=== PATIENT | male | born 1990 | race Hispanic/Latino ===

== ENCOUNTER 2022-05-21 18:12 | Emergency (ER) | payer SELFPAY ==
--- OUTSIDE RECORDS SUMMARY | 2022-05-21 18:17 | XMS REPORT | Continuity of Care Document ---
:1990 Author Organization [facility] t Address [address] [place] [address] Care Team Providers Name Role Phone Pcp, Patient Does Not Have A Primary Care Physician [phone] Flower Stevenson NP Attending Clinician JONNY ASHTON III Attending Clinician Unavailable Problems Condition Condition Condition Status Onset Resolution Last Treating Co mments Source Name Details Category Date Date Treatment Clinician Date MULTIPLE MULTIPLE Diagnosis Active 2017-07-26 Memoria FACILA FACILA 03-10 09:30:00 l FX'S FX'S 00:00: Sumit Active 00 03/10/2017 [facility] No known No known Disease Unive rs active active ity of problems problems [facility] History of Past Illness Condition Condition Condition Status Onset Resolution Last Treating Co mments Source Name Details Category Date Date Treatment Clinician Date Unspecifie Unspecifi Problem 2017-03-13 2017-03-13 Memoria d fracture ed 03-10 00:29:00 00:29:00 l of facial fracture 05:00: Lona nn bones, of facial 00 initial bones, encounter initial for closed encounter fracture for closed fracture 03/10/2017 03/13/2017 [facility] Allergies, Adverse Reactions, Alerts Allergy Allergy Status Severity Reaction(s) Onset Inactive Treating Comm ents Source Name Type Date Date Clinician Crab Propensi Active Swelling 2015-10 Facial Univer s ty to 0-07 swelling ity of adverse 00:00: [place] reaction Medical s Branch CRAB DRUG Active Swelling 2015-10 Univers INGREDI 0-07 ity of 00:00: [place] [id number] Medical Branch Social History Social Habit Start Date Stop Date Quantity Comments Source Exposure to Yes [facility] SARS-CoV-2 (event) Medica l Branch Sex Assigned At [birth year] [facility] 00:00:00 00:00:00 Medical Branch Smoking Status Start Date Stop Date Source Unknown if ever smoked [facility] Social History 2017-03-10 07:56:16 [facility] sullivan Medications Ordered Filled Start Stop Current Ordering Indication Dosage Frequency Signature Comments Components Source Medication Medication Date Date Medication? Clinician (SIG) Name Name albuterol Yes [id number] 2{puff} Inhale 2 Univers 90 -06 Puffs ity of mcg/actuati 00:00: every 4 [place] as on inhaler 00 (four) Medical hours as Branch needed for Wheezing or Shortness of Breath. benzonatate Yes [id number] 200mg Take 2 Univers 100 mg 9-06 capsules ity of capsule 00:00: [place] mouth 3 [place] 00 (three) Medical times Branch daily as needed for Cough. aspirin 325 2020- No [id number] 325mg Take 1 Univers mg tablet 06-19 tablet by ity of 00:00: 04:59 mouth [place] 00 :00 daily for Medical 30 days. Branch famotidine 2020- No [id number] 20mg Take 1 Univers 20 mg 06-19 tablet by ity of tablet 00:00: 04:59 mouth at [place] 00 :00 bedtime Medical for 21 Branch days. codeine-gua 2020- No 5224 10mL Take 10 mL Univers ifenesin 06-19 by mouth ity of (CHERATUSSI 00:00: 04:59 every 6 [place] 00 :00 (six) Medical 10-100 mg/5 hours as Bran ch mL solution needed for Cough for up to 7 days. Indication s: chronic pain traMADOL 2015-10 Yes 50mg Take 1 Univers (ULTRAM) 50 0-07 tablet by ity of mg tablet 00:00: mouth [place] 00 every 6 Medical (six) Branch hours as needed for Pain (scale 4-6). Jonny Ashton PA-C / Alan Petty MD ESTEVAN# [id number] DPS# [id number] x Lic.# [id number] [facility]# [id number] cyclobenzap 2015-10 No 5mg Take 1 Uni vers rine 007 06-19 tablet by ity of (FLEXERIL) 00:00: 00:00 mouth 3 [place] as 5 mg tablet 00 :00 (three) Medic al times Branch daily. Vital Signs Vital Name Observation Time Observation Value Comments Source Systolic blood 2021-06-19 17:09:00 136 mm[Hg] Univer sity of pressure [facility] Diastolic blood 2021-06-19 17:09:00 57 mm[Hg] Unive rsity of [facility] Heart rate 2021-06-19 17:09:00 73 /min [facility] Body temperature 2021-06-19 17:09:00 37.17 Gloria [facility] Respiratory rate 2021-06-19 17:09:00 22 /min [facility] Body weight 2021-06-19 17:09:00 58.968 kg [facility] BMI 2021-06-19 17:09:00 20.98 kg/m2 [facility] Oxygen saturation in 2021-06-19 17:09:00 100 /min [facility] Arterial blood by [facility] Pulse oximetry [place] Systolic (mm Hg) 2017-03-10 11:33:00 Maurizio rial [place] Diastolic (mm Hg) 2017-03-10 11:33:00 [facility] orial Sumit Respitory Rate 2017-03-10 11:33:00 Memori al [place] Heart Rate 2017-03-10 11:33:00 Memorial [facility] Respitory Rate 2017-03-10 10:21:00 Memori al [place] Systolic (mm Hg) 2017-03-10 10:21:00 Maurizio rial [place] Diastolic (mm Hg) 2017-03-10 10:21:00 Mem orial [place] Heart Rate 2017-03-10 10:21:00 [facility] Heart Rate 2017-03-10 07:26:00 [facility] [place] Systolic (mm Hg) 2017-03-10 07:26:00 Maurizio rial Sumit Diastolic (mm Hg) 2017-03-10 07:26:00 Mem orial Sumit Respitory Rate 2017-03-10 07:26:00 Tylerbryan Smith BMI Calculated 2017-03-10 07:26:00 Wagner Smith Weight 2017-03-10 07:26:00 Shon Loveann Height 2017-03-10 07:26:00 170.18 cm [facility] Procedures Procedure Date / Time Performed Performing Clinician Sravani hennessy COVID-19 (ID NOW 2021-06-19 17:12:00 Francois Alejo [facility] RAPID TESTING) [facility] Encounters Start End Encounter Admission Attending Care Care Encounter Source Date/Time Date/Time Type Type Clinicians Facility Department ID 2021-06-19 2021-06-19 Emergency Dre[place], [facility] [id number] Univers 12:14:00 15:39:00 Flower Choi [id number] [facility] [id number] [facility] [id number] [facility] 084 Branch 2021-06-19 2021-06-19 Emergency X [facility] ERT [id number] Univers 11:39:00 11:39:00 [facility] 2017-03-10 2017-03-10 [facility] [id number] Memoria 07:26:00 11:34:00 gabe Arana 48 l [facility] 2016-07-20 2016-07-20 Emergency X POLI III, [facility] ERT [id number] Univers 13:29:55 15:14:00 JONNY [facility] Results Test Description Test Time Test Comments Results Result Comments Source COVID-19 (ID NOW RAPID TESTING) 2021-06-19 17:37:24 Test Item Value Reference Range Interpretation Comme nts SARS-CoV-2 Rapid ID NOW (test code Positive Not Detected A = 88782-8) VINICIO (test code = VINICIO) ID NOW COVID-19 Assay is an isothermal nucleic acid amplification test intended for the qualitative detection of nucleic acid from SARS-CoV-2 viral RNA in nasopharyngeal (REEL CART OPERATOR) specimens. It is used under Emergency Use Authorization (EUA) by FDA. The limit of detection (LOD) of the assay is 125 Genome Equivalents/mL. A positive result is indicative of the presence of SARS-CoV-2 RNA. ?Clinical correlation with patient history and other diagnostic information is necessary to determine patient infection status. A negative (Not Detected) result does not preclude SARS-CoV-2 infection. In patients with clinical symptoms and other tests that are consistent with SARS-CoV-2 infection, negative results should be treated as presumptive negative and a new specimen should be tested with alternative PCR molecular test. Invalid: Please collect a new specimen for repeat patient testing if clinically indicated. Lab Interpretation (test code = Abnormal 17716-0) [facility]
[2022-05-21] MEDS ORDERED: NA CHLORIDE 0.9% 1,000 ML ONE (19:15)
[2022-05-21] MEDS ORDERED: ACETAMINOPHEN 500 MG TAB ONE (19:21)
[2022-05-21 19:39] LABS: Absolute Lymphocytes (CBC) 1.4 K/uL (0.7-4.9); Lymphocytes % 11.3 % (15.3-44.8); MCV 85.9 fL (80-100); MPV 8.6 fL (7.6-11.3); RBC Red Blood Cell Count 5.12 M/uL (4.33-5.43)
[2022-05-21 19:42] LABS: Protime INR 1.26
[2022-05-21 19:53] LABS: Albumin 4.4 g/dL (3.4-5.0); Bilirubin Direct 0.1 mg/dL (0-0.2); Bilirubin Total 0.7 mg/dL (0.2-1.0); Potassium 3.9 mmol/L (3.5-5.1); Protein, Total 8.2 g/dL (6.4-8.2)
--- NOTE | 2022-05-21 20:16 | EDPHYS ---
Physician Documentation [facility] Name: Dirk Pimentel Age: 31 yrs Sex: Male : 1990 Arrival Date: 05/21/2022 Time: 18:21 Bed 24 Private MD: ED Physician Fam Casper HPI: 05/21 18:25 This 31 yrs old Male presents to ER via EMS with complaints of Heat Exposure. cp 18:25 Type of Exposure: heat, while working outside. cp 18:25 Context: The problem was sustained at work. cp 18:25 Onset: The symptoms/episode began/occurred today. Symptoms: nausea, vomiting, cramping cp all over. The patient has not experienced similar symptoms in the past. Historical: - Allergies: 18:28 NKDA; jl7 18:28 SEAFOOD; jl7 - Home Meds: 18:28 None [Active]; jl7 - PMHx: 18:28 Asthma; jl7 - PSHx: 18:28 None; jl7 - Immunization history:: Client reports having NOT received the Covid vaccine. - Social history:: Smoking status: Patient denies any tobacco usage or history of. ROS: 18:30 Constitutional: Negative for chills, fever, poor PO intake. cp 18:30 Abdomen/GI: Positive for vomiting, abdominal cramps, Negative for diarrhea, cp constipation. Exam: 18:35 Constitutional: The patient appears in no acute distress, alert, awake, cp non-diaphoretic, non-toxic, well developed, well nourished. 18:35 Head/Face: Normocephalic, atraumatic. cp 18:35 Eyes: Periorbital structures: appear normal, Conjunctiva: normal, no exudate, no injection, Sclera: no appreciated abnormality, Lids and lashes: appear normal, bilaterally. 18:35 ENT: External ear(s): are unremarkable, Nose: is normal, Mouth: Lips: moist, Oral mucosa: moist, Posterior pharynx: Airway: no evidence of obstruction, patent. 18:35 Neck: ROM/movement: is normal, is supple, without pain, no range of motions limitations, no nuchal rigidity. 18:35 Chest/axilla: Inspection: normal. 18:35 Cardiovascular: Rate: normal, Rhythm: regular, Edema: is not appreciated, JVD: is not appreciated. 18:35 Respiratory: the patient does not display signs of respiratory distress, Respirations: normal, no use of accessory muscles, no retractions, labored breathing, is not present, Breath sounds: are clear throughout, no decreased breath sounds, no stridor, no wheezing. 18:35 Abdomen/GI: Inspection: abdomen appears normal, Palpation: abdomen is soft and non-tender, in all quadrants. 18:35 Skin: cellulitis, is not appreciated, no rash present. 18:35 Neuro: Orientation: to person, place \T\ time. Mentation: is normal, Cerebellar function: is grossly normal, Motor: moves all fours, strength is normal, Sensation: is normal. 19:33 ECG was reviewed by the Attending Physician. cp Vital Signs: 18:22 BP 126 / 97; Pulse 87; Resp 17; Temp 98.9; Pulse Ox 99% ; Weight 61.23 kg; Height 5 ft. jl7 6 in. (167.64 cm); Pain 7/10; 19:15 BP 128 / 87; Pulse 80; Resp 13; Pulse Ox 98% on R/A; Pain 6/10; lp1 20:33 BP 136 / 91; Pulse 90; Resp 20; Pulse Ox 98% on R/A; Pain 2/10; lp1 18:22 Body Mass Index 21.79 (61.23 kg, 167.64 cm) jl7 MDM: 18:23 Patient medically screened. cp 20:10 Data reviewed: vital signs, nurses notes, lab test result(s), EKG. Test interpretation: cp by ED physician or midlevel provider: ECG. Counseling: I had a detailed discussion with the patient and/or guardian regarding: the historical points, exam findings, and any diagnostic results supporting the discharge/admit diagnosis, lab results, to return to the emergency department if symptoms worsen or persist or if there are any questions or concerns that arise at home. Response to treatment: the patient's symptoms have markedly improved after treatment, and as a result, I will discharge patient. 05/21 18:22 Order name: Basic Metabolic Panel; Complete Time: 19:55 cp 05/21 19:55 Interpretation: Normal except: GFR 78. cp 05/21 18:22 Order name: CBC with Diff; Complete Time: 19:51 cp 08/08 19:51 Interpretation: Normal except: WBC 12.2; SHANON% 79.6; LYM% 11.3; NEUT A 9.7. cp 08/08 18:22 Order name: LFT's; Complete Time: 19:55 cp 08/08 19:55 Interpretation: Normal except: GLOB 3.8. cp 08/08 18:22 Order name: Magnesium; Complete Time: 19:55 cp 08 18:22 Order name: PT-INR; Complete Time: 19:51 cp 08/08 19:55 Interpretation: Reviewed. cp 08/08 18:22 Order name: CK; Complete Time: 19:55 cp 08/08 18:22 Order name: EKG; Complete Time: 18:29 cp 08 18:22 Order name: Cardiac monitoring; Complete Time: 19:32 cp 08 18:22 Order name: EKG - Nurse/Tech; Complete Time: 19:32 cp 0808 18:22 Order name: IV Saline Lock; Complete Time: 19:32 cp 08 20:52 Order name: Urine Dipstick-Ancillary EDME 05/21 18:22 Order name: Labs collected and sent; Complete Time: 19:32 cp 0808 18:22 Order name: O2 Per Protocol; Complete Time: 19:32 cp 08 18:22 Order name: O2 Sat Monitoring; Complete Time: 19:32 cp 08/08 19:52 Order name: Urine Dipstick-Ancillary (obtain specimen); Complete Time: 20:56 cp 08/08 19:55 Order name: PO challenge; Complete Time: 20:31 cp EC:33 Rate is 76 beats/min. Rhythm is regular. NC interval is normal. QRS interval is normal. cp QT interval is normal. T waves are Inverted in leads aVL, aVR. Interpreted by me. Reviewed by me. Administered Medications: 19:15 Drug: NS 0.9% 1000 ml Route: IV; Rate: 1 bolus; Site: left antecubital; lp1 20:31 Follow up: IV Status: Completed infusion; IV Intake: 1000ml lp1 19:15 Drug: Tylenol 1000 mg Route: PO; lp1 20:31 Follow up: Response: No adverse reaction; Marked relief of symptoms lp1 19:33 Not Given (Physician Discretion): NS 0.9% 1000 ml IV at 1 bolus Per protocol; 1000 mL lp1 bolus Disposition Summary: 05/21/22 20:15 Discharge Ordered Location: Home cp Problem: new cp Symptoms: have improved cp Condition: Stable cp Diagnosis - Heat cramp cp Followup: cp - With: Private Physician - When: 1 - 2 days - Reason: Recheck today's complaints Discharge Instructions: - Discharge Summary Sheet cp - Muscle Cramps and Spasms cp - Heat Exhaustion cp - Preventing Heat Exhaustion, Adult cp Forms: - Medication Reconciliation Form cp - Work release form lp1 - Thank You Letter cp - Antibiotic Education cp - Prescription Opioid Use cp Addendum: 05/22/2022 21:46 Co-signature as Attending Physician, Fam Casper MD. r n Signatures: Dispatcher [employer] EDMS Fam Casper MD MD rn Pena, Laura, RN RN lp1 Neville Bruce PA PA cp Leal, Jahala RN RN jl7 Corrections: (The following items were deleted from the chart) 05/21 18:29 18:28 PMHx: None; jlTea jl7 19:55 19:55 Normal except. cp cp
--- NOTE | 2022-05-21 20:16 | ER ---
Nurse's Notes [facility] [place] Name: Dirk Pimentel Age: 31 yrs Sex: Male : 1990 Arrival Date: 05/21/2022 Time: 18:21 Bed 24 Private MD: Diagnosis: Heat cramp Presentation: 05/21 18:22 Chief complaint: EMS states: Toned out for heat exposer, [place] [employer] loading jl7 cars, stopped sweating an hour ago, started cramping and vomiting x 3. Coronavirus screen: At this time, the client does not indicate any symptoms associated with coronavirus-19. Ebola Screen: No symptoms or risks identified at this time. Initial Sepsis Screen: Does the patient meet any 2 criteria? No. Patient's initial sepsis screen is negative. Does the patient have a suspected source of infection? No. Patient's initial sepsis screen is negative. Risk Assessment: Do you want to hurt yourself or someone else? Patient reports no desire to harm self or others. Onset of symptoms was May 21, 2022. Care prior to arrival: Medication(s) given: 1 Liter LR IV initiated. 18 GA, in the left antecubital area. 18:22 Method Of Arrival: EMS: [facility] jl7 18:22 Acuity: [place] 3 jl7 Triage Assessment: 18:28 General: Appears in no apparent distress. uncomfortable, Behavior is calm, cooperative, jl7 appropriate for age. Pain: Complains of pain in BONE Pain currently is 7 out of 10 on a pain scale. Neuro: Level of Consciousness is awake, alert, obeys commands, Oriented to person, place, time, situation. Cardiovascular: Patient's skin is warm and dry. Respiratory: Airway is patent Respiratory effort is even, unlabored, Respiratory pattern is regular, symmetrical. Derm: Skin is dry, Skin is normal, Skin temperature is cool. Historical: - Allergies: 18:28 NKDA; jl7 18:28 SEAFOOD; jl7 - Home Meds: 18:28 None [Active]; jl7 - PMHx: 18:28 Asthma; jl7 - PSHx: 18:28 None; jl7 - Immunization history:: Client reports having NOT received the Covid vaccine. - Social history:: Smoking status: Patient denies any tobacco usage or history of. Screenin:33 Abuse screen: Denies threats or abuse. Denies injuries from another. Nutritional lp1 screening: No deficits noted. Tuberculosis screening: No symptoms or risk factors identified. Fall Risk None identified. Assessment: 19:05 General: Appears in no apparent distress. Behavior is calm, cooperative. Pain: lp1 Complains of pain in head Pain currently is 6 out of 10 on a pain scale. Neuro: Level of Consciousness is awake, alert, obeys commands, Oriented to person, place, time, situation. Cardiovascular: Patient's skin is warm and dry. Rhythm is regular. Respiratory: Respiratory effort is even, unlabored. GI: No signs and/or symptoms were reported involving the gastrointestinal system. : No signs and/or symptoms were reported regarding the genitourinary system. EENT: No signs and/or symptoms were reported regarding the EENT system. Derm: Skin is pink, warm \T\ dry. Musculoskeletal: No deficits noted. 19:10 Reassessment: Provider notified of patient complaint of headache. lp1 20:33 Reassessment: Patient is alert, oriented x 3, equal unlabored respirations, skin lp1 warm/dry/pink. Patient tolerating drinking water Patient states feeling better. Patient states symptoms have improved. Vital Signs: 18:22 BP 126 / 97; Pulse 87; Resp 17; Temp 98.9; Pulse Ox 99% ; Weight 61.23 kg; Height 5 ft. jl7 6 in. (167.64 cm); Pain 7/10; 19:15 BP 128 / 87; Pulse 80; Resp 13; Pulse Ox 98% on R/A; Pain 6/10; lp1 20:33 BP 136 / 91; Pulse 90; Resp 20; Pulse Ox 98% on R/A; Pain 2/10; lp1 18:22 Body Mass Index 21.79 (61.23 kg, 167.64 cm) jl7 ED Course: 18:21 Patient arrived in ED. jl7 18:21 Neville Bruce PA is PHCP. cp 18:21 Fam Casper MD is Attending Physician. cp 18:28 Triage completed. jl7 18:28 Arm band placed on right wrist. jl7 19:06 Marlyn Isaac, RN is Primary Nurse. lp1 19:15 Patient has correct armband on for positive identification. Bed in low position. Call lp1 light in reach. Side rails up X2. Client placed on continuous cardiac and pulse oximetry monitoring. NIBP monitoring applied. 19:15 Maintain EMS IV. Dressing intact. Good blood return noted. Site clean \T\ dry. Gauge \T\ lp 1 site: 18g to L AC. 19:31 Initial lab(s) drawn, by me, sent to lab. lp1 20:33 No provider procedures requiring assistance completed. lp1 20:56 IV discontinued, No redness/swelling at site. Pressure dressing applied. lp1 Administered Medications: 19:15 Drug: NS 0.9% 1000 ml Route: IV; Rate: 1 bolus; Site: left antecubital; lp1 20:31 Follow up: IV Status: Completed infusion; IV Intake: 1000ml lp1 19:15 Drug: Tylenol 1000 mg Route: PO; lp1 20:31 Follow up: Response: No adverse reaction; Marked relief of symptoms lp1 19:33 Not Given (Physician Discretion): NS 0.9% 1000 ml IV at 1 bolus Per protocol; 1000 mL lp1 bolus Medication: 19:33 VIS not applicable for this client. lp1 Intake: 19:15 IV: 1000ml (IV Fluid); Total: 1000ml. lp1 20:31 IV: 1000ml; Total: 2000ml. lp1 19:15 LR by EMS lp1 Outcome: 20:15 Discharge ordered by . cp 20:55 Discharged to home ambulatory, with significant other. lp1 20:55 Condition: good 20:55 Discharge instructions given to patient, significant other, Instructed on discharge instructions, follow up and referral plans. Demonstrated understanding of instructions, follow-up care. 20:56 Patient left the ED. lp1 Signatures: Marlyn Isaac, RN RN lp1 Neville Bruce PA PA cp Leal, Jahala RN RN jl7 Corrections: (The following items were deleted from the chart) 18:29 18:28 PMHx: None; tony jlTea
[2022-05-21 20:52] LABS: Urine Blood Negative (Negative); Urine Glucose Negative (Negative); Urine Protein 2+ (Negative); Urine Specific Gravity >=1.030 (1.005-1.030); Urine pH 5.5 (5.0-7.0)
[2022-05-21 23:17] VITALS: TEMP 98.9
[2022-05-21 23:19] VITALS: BP 136/91; O2SAT 98
--- NOTE | 2022-05-22 10:38 | EKG ---
Test Date: 2022-05-21 Test Time: 19:27:43 Ventilation Worker: GEOVANY MEASUREMENT RESULTS: Intervals: Rate: 76 TN: 128 QRSD: 76 QT: 358 QTc: 402 [place]: P: 13 TN: 128 QRS: 90 T: 74 INTERPRETIVE STATEMENTS: Normal sinus rhythm Rightward axis Borderline ECG Compared to ECG 03/09/2017 22:31:33 Right-axis deviation now present ST (T wave) deviation no longer present Electronically Signed On 05-22-22 10:36:06 CDT by Chele Covarrubias
== END 2022-05-21 20:56 | disposition home or self-care (01) ==
LOC: ER 18:12
DX: T67.2XXA Heat cramp, initial encounter (principal); R11.2 Nausea with vomiting, unspecified; Z91.013 Allergy to seafood
CPT/HCPCS: 36415; 80048; 80076; 81003; 82550; 83735; 85025; 85610; 93005; 96360; 99283; J7030

== ENCOUNTER 2023-08-16 08:46 | Emergency (ER) | payer SELFPAY ==
--- OUTSIDE RECORDS SUMMARY | 2023-08-16 08:50 | XMS REPORT | Continuity of Care Document ---
:1990 Author Organization [facility] t Address [address] [facility]. [address] [place] [address] Care Team Providers Name Role Phone Pcp, Patient Does Not Have A Primary Care Physician [phone] Flower Stevenson NP Attending Clinician Baudilio Mitchell Attending Clinician JONNY ASHTON III Attending Clinician Unavailable Chirag Hernandez (Fellow) Admitting Clinician Problems Condition Condition Condition Status Onset Resolution Last Treating Co mments Source Name Details Category Date Date Treatment Clinician Date MULTIPLE MULTIPLE Diagnosis Active 2017-07-26 Memoria FACILA FACILA 03-10 09:30:00 l FX'S FX'S 00:00: Sumit Active 00 03/10/2017 [facility] No known No known Disease Unive rs active active ity of problems problems [facility] History of Past Illness Condition Condition Condition Status Onset Resolution Last Treating Co mments Source Name Details Category Date Date Treatment Clinician Date Unspecifie Unspecifi Problem 2017-03-13 2017-03-13 Memoria d fracture ed 03-10 00:29:00 00:29:00 l of facial fracture 05:00: Lona nn bones, of facial 00 initial bones, encounter initial for closed encounter fracture for closed fracture 03/10/2017 03/13/2017 [facility] Allergies, Adverse Reactions, Alerts Allergy Allergy Status Severity Reaction(s) Onset Inactive Treating Comm ents Source Name Type Date Date Clinician Paolo Quinonesensi Active Swelling 2015-10 Facial Univer s ty to 0-07 swelling ity of adverse 00:00: [place] reaction 00 Medical s Branch CRAB DRUG Active Swelling 2015-10 Univers INGREDI 0-07 ity of 00:00: [place] 00 Medical Branch Social History Social Habit Start Date Stop Date Quantity Comments Source Exposure to Yes [facility] SARS-CoV-2 (event) Medica l Branch Sex Assigned At [birth year] [facility] 00:00:00 00:00:00 Medical Branch Smoking Status Start Date Stop Date Source Unknown if ever smoked [facility] Medical [place] Social History 2017-03-10 07:56:16 [facility] Medications Ordered Filled Start Stop Current Ordering Indication Dosage Frequency Signature Comments Components Source Medication Medication Date Date Medication? Clinician (SIG) Name Name albuterol Yes [id number] 2{puff} Inhale 2 Univers 90 -06 Puffs ity of mcg/actuati 00:00: every 4 Curt as on inhaler 00 (four) Medical hours as Branch needed for Wheezing or Shortness of Breath. benzonatate Yes [id number] 200mg Take 2 Univers 100 mg 9-06 capsules ity of capsule 00:00: [place] mouth 3 [place] (three[place] Medical times Branch daily as needed for Cough. aspirin 325 2020- No [id number] 325mg Take 1 Univers mg tablet 06-19 tablet by ity of 00:00: 04:59 mouth [place] 00 :00 daily for Medical 30 days. Branch famotidine 2020- No [id number] 20mg Take 1 Univers 20 mg 06-19 [...] Ashton PA-C / Alan Petty MD ESTEVAN# [id number] [facility]# [id number] x [facility].# [id number] [facility]# [id number] cyclobenzap 2015-10 No 5mg Take 1 Uni vers rine 007 06-19 tablet by ity of (FLEXERIL) 00:00: 00:00 mouth 3 Curt as 5 mg tablet 00 :00 (three) Medic al times Branch daily. Vital Signs Vital Name Observation Time Observation Value Comments Source Systolic blood 2021-06-19 17:09:00 136 mm[Hg] Univer sity [facility] Diastolic blood 2021-06-19 17:09:00 57 mm[Hg] Unive rsity [facility] Heart rate 2021-06-19 17:09:00 73 /min [facility] Body temperature 2021-06-19 17:09:00 37.17 Gloria [facility] Respiratory rate 2021-06-19 17:09:00 22 /min [facility] Body weight 2021-06-19 17:09:00 58.968 kg [facility] BMI 2021-06-19 17:09:00 20.98 kg/m2 [facility] Oxygen saturation in 2021-06-19 17:09:00 100 /min [facility] Arterial blood by [facility] Pulse oximetry [place] Systolic (mm Hg) 2017-03-10 11:33:00 Maurizio rial [place] Diastolic (mm Hg) 2017-03-10 11:33:00 Mem orial [place] Respitory Rate 2017-03-10 11:33:00 Memori al [place] Heart Rate 2017-03-10 11:33:00 [facility] Respitory Rate 2017-03-10 10:21:00 Memori al [place] Systolic (mm Hg) 2017-03-10 10:21:00 Maurizio rial [place] Diastolic (mm Hg) 2017-03-10 10:21:00 Mem orial [place] Heart Rate 2017-03-10 10:21:00 [facility] [place] Heart Rate 2017-03-10 07:26:00 [facility] [place] Systolic (mm Hg) 2017-03-10 07:26:00 Maurizio Arana Diastolic (mm Hg) 2017-03-10 07:26:00 Tyler Arana Respitory Rate 2017-03-10 07:26:00 Wagner Smith BMI Calculated 2017-03-10 07:26:00 Wagner Smith Weight 2017-03-10 07:26:00 Shon Arana Height 2017-03-10 07:26:00 170.18 cm Shon Loveann Procedures Procedure Date / Time Performed Performing Clinician Sravani hennessy COVID-19 (ID NOW 2021-06-19 17:12:00 Francois Alejo [facility] RAPID TESTING) [facility] Encounters Start End Encounter Admission Attending Care Care Encounter Source Date/Time Date/Time Type Type Clinicians Facility Department ID 2021-06-19 2021-06-19 [facility] [id number] Univers 12:14:00 15:39:00 Flower Choi [id number] [facility] [id number] [facility] [id number] [place] [id number] Branch 2021-06-19 2021-06-19 Emergency X [facility] ERT [id number] Univers 11:39:00 11:39:00 [facility] 2017-03-10 2017-03-10 Emergency [facility] [id number] Memoria 07:26:00 11:34:00 r [place] 48 [facility] 2017-03-10 2017-03-10 Emergency [facility] [id number] Memoria 07:26:00 11:34:00 r [place] 48 [facility] 2017-03-10 2017-03-10 Outpatient [place], [facility] [id number] 02:26:00 06:34:00 Baudilio Mcfarland 2016-07-20 2016-07-20 Emergency X POLI III, [facility] ERT [id number] Univers 13:29:55 15:14:00 JONNY [facility] Results Test Description Test Time Test Comments Results Result Comments Source COVID-19 (ID NOW RAPID TESTING) 2021-06-19 17:37:24 Test Item Value Reference Range Interpretation Comme nts SARS-CoV-2 Rapid ID NOW (test code Positive Not Detected A = 89521-5) VINICIO (test code = VINICIO) ID NOW COVID-19 Assay is an isothermal nucleic acid amplification test intended for the qualitative detection of nucleic acid from SARS-CoV-2 viral RNA in nasopharyngeal (EXECUTIVE DIRECTOR) specimens. It is used under Emergency Use [...] indicated. Lab Interpretation (test code = Abnormal 82890-7) [facility]
[2023-08-16] MEDS ORDERED: ALBUTEROL 2.5 MG/3 ML NEB SOL ONE (09:23)
[2023-08-16] MEDS ORDERED: IPRATROPIUM BROM 0.5MG/2.5ML ONE (09:24)
[2023-08-16 09:33] LABS: SARS-CoV-2 Antigen Rapid Res Negative (Negative)
--- NOTE | 2023-08-16 09:54 | RAD REPORT ---
EXAM DESCRIPTION: RAD - Chest Single View - 08/16/2023 9:43 am CLINICAL HISTORY: COUGH COMPARISON: No comparisons FINDINGS: Lines: None. Lungs: No evidence of edema or pneumonia. Pleural: No significant pleural effusions or pneumothorax. Cardiac: The heart size is within normal limits. Mediastinum: Within normal limits. Bones: No acute fractures. Other: None IMPRESSION: No acute cardiopulmonary disease.
--- NOTE | 2023-08-16 09:59 | EDPHYS ---
Physician Documentation [facility] Name: Dirk Pimentel Age: 32 yrs Sex: Male : 1990 Arrival Date: 08/16/2023 Time: 08:46 Bed 15 Private MD: ED Physician Fam Casper HPI: 08/16 08:55 This 32 yrs old Male presents to ER via Ambulatory with complaints of Chest jh7 Tightness, Cough. 08:55 Onset: The symptoms/episode began/occurred yesterday. Associated signs and symptoms: jh7 Pertinent positives: chest pain, congestion, cough, shortness of breath, Pertinent negatives: abdominal pain, fever. Patient sent by his work to get tested for COVID due to chest tightness and cough since yesterday. Reports a history of a heart murmur. Denies any other symptoms at this time.. Historical: - Allergies: 08:55 NKDA; hb 08:55 SEAFOOD; hb - Home Meds: 08:55 None [Active]; hb - PMHx: 08:55 Asthma; hb - PSHx: 08:55 None; hb - Immunization history:: Adult Immunizations up to date. - Social history:: Smoking status: . ROS: 08:55 Constitutional: Negative for fever, chills, and weight loss, Eyes: Negative for injury, jh7 pain, redness, and discharge, ENT: Negative for injury, pain, and discharge, Abdomen/GI: Negative for abdominal pain, nausea, vomiting, diarrhea, and constipation, Back: Negative for injury and pain, MS/Extremity: Negative for injury and deformity, Skin: Negative for injury, rash, and discoloration, Neuro: Negative for headache, weakness, numbness, tingling, and seizure, 08:55 Cardiovascular: Positive for chest pain, with cough, Negative for orthopnea, palpitations, 08:55 Respiratory: Positive for cough, shortness of breath, 08:55 All other systems are negative, Exam: 08:55 Constitutional: This is a well developed, well nourished patient who is awake, alert, jh7 and in no acute distress. Head/Face: Normocephalic, atraumatic. Neck: Trachea midline, no thyromegaly or masses palpated, and no cervical lymphadenopathy. Supple, full range of motion without nuchal rigidity, or vertebral point tenderness. No Meningismus. Cardiovascular: Regular rate and rhythm with a normal S1 and S2. No gallops, murmurs, or rubs. Normal PMI, no JVD. No pulse deficits. Abdomen/GI: Soft, non-tender, with normal bowel sounds. No distension or tympany. No guarding or rebound. No evidence of tenderness throughout. Back: No spinal tenderness. No costovertebral tenderness. Full range of motion. Skin: Warm, dry with normal turgor. Normal color with no rashes, no lesions, and no evidence of cellulitis. MS/ Extremity: Pulses equal, no cyanosis. Neurovascular intact. Full, normal range of motion. Neuro: Awake and alert, GCS 15, oriented to person, place, time, and situation. Motor strength 5/5 in all extremities. Sensory grossly intact. Normal gait. 08:55 Respiratory: the patient does not display signs of respiratory distress, Respirations: normal, Breath sounds: decreased breath sounds, that are mild, Vital Signs: 08:54 BP 141 / 101; Pulse 82; Resp 16; Temp 98.3; Pulse Ox 100% on R/A; Pain 2/10; hb 09:45 BP 117 / 85; Pulse 72; Resp 16; Pulse Ox 100% on R/A; db 08:54 Pain Scale: Adult hb MDM: 08:50 Patient medically screened. [facility] 09:57 Differential diagnosis: viral Infection, bacterial infection, URI, bronchitis, [facility] pneumonia. Data reviewed: vital signs, nurses notes, EKG, radiologic studies, plain films. I considered the following discharge prescriptions or medication management in the emergency department Medications were administered in the Emergency Department. See MAR. Independent interpretation of the following test(s) in the Emergency Department EKG: See my EKG interpretation above X-Ray: My interpretation is no pneumonia. Counseling: I had a detailed discussion with the patient and/or guardian regarding the historical points, exam findings, and any diagnostic results supporting the discharge/admit diagnosis, to return to the emergency department if symptoms worsen or persist or if there are any questions or concerns that arise at home. Response to treatment: the patient's symptoms have markedly improved after treatment. 08/16 08:55 Order name: SARS RAPID; Complete Time: 09:35 [facility] 08/16 08:55 Order name: XRAY Chest (1 view); Complete Time: 09:55 jh7 08/16 08:55 Order name: EKG - Nurse/Tech; Complete Time: 09:11 jh7 EC:07 Rate is 73 beats/min. Rhythm is regular. QRS [place] is Normal. [place] interval is normal at jh7 140 msec. QRS interval is normal at 82 msec. QT interval is normal at 376 msec. No Q waves. T waves are Normal. No ST changes noted. Clinical impression: Normal ECG. Administered Medications: 09:18 Drug: DuoNeb Nebulize (2.5 mg - 0.5 mg) 3 ml Nebulizer once Route: Nebulizer; db 10:12 Follow up: Response: No adverse reaction db Disposition: 11:30 Co-signature as Attending Physician, Fam Casper MD I reviewed the patient's care rn provided by the Advanced Practice Provider and agree with the diagnosis and treatment plan. Disposition Summary: 08/16/23 09:58 Discharge Ordered Notes: Location: Home [facility] Problem: new [facility] Symptoms: have improved [facility] Condition: Stable [facility] Diagnosis - Acute upper respiratory infection, unspecified [facility] Followup: [facility] - With: Private Physician - When: 2 - 3 days - Reason: Recheck today's complaints Discharge Instructions: - Discharge Summary Sheet [facility] - Upper Respiratory Infection, Adult [facility] - Viral Respiratory Infection [facility] Forms: - Medication Reconciliation Form [facility] - Thank You Letter [facility] - Antibiotic Education [facility] - Patient Portal Instructions [facility] - Leadership Thank You Letter [facility] - Work release form Prescriptions: - Bromfed DM 2-30-10 mg/5 mL Oral syrup - administer 10 milliliter ORAL route every 4-6 hours As needed as needed for 7 cold symptoms; 240 milliliter; Refills: 0, Product Selection Permitted - albuterol sulfate 90 mcg/actuation Inhalation HFA Aerosol Inhaler - inhale 1 inhalation INHALATION route every 4 to 6 hours As needed as needed for jh7 bronchospasm; administer via ventilator; 1 Each; Refills: 0, Product Selection Permitted - Tessalon Perles 100 mg Oral Capsule - take 1 capsule ORAL route every 8 hours As needed; 15 capsule; Refills: 0, jh7 Product Selection Permitted Signatures: Dispatcher [employer] EDFam Juarez MD MD rn Baxter, Heather, RN RN hb Hadash, Jennifer, FNP FNP [facility] Mackenzie Walker, RN RN db
--- NOTE | 2023-08-16 09:59 | ER ---
Nurse's Notes [facility] Name: Dirk Pimentel Age: 32 yrs Sex: Male : 1990 Arrival Date: 08/16/2023 Time: 08:46 Bed 15 Private MD: Diagnosis: Acute upper respiratory infection, unspecified Presentation: 08/16 08:54 Chief complaint: Cough and chest tightness x 2 days. Coronavirus screen: Client hb presents with at least one sign or symptom that may indicate coronavirus-19. Provider contacted for isolation considerations. Ebola Screen: No symptoms or risks identified at this time. Initial Sepsis Screen: Does the patient meet any 2 criteria? No. Patient's initial sepsis screen is negative. Does the patient have a suspected source of infection? No. Patient's initial sepsis screen is negative. Risk Assessment: Do you want to hurt yourself or someone else? Patient reports no desire to harm self or others. Onset of symptoms was August 15, 2023. 08:54 Method Of Arrival: Ambulatory hb 08:54 Acuity: [place] 4 hb Historical: - Allergies: 08:55 NKDA; hb 08:55 SEAFOOD; hb - Home Meds: 08:55 None [Active]; hb - PMHx: 08:55 Asthma; hb - PSHx: 08:55 None; hb - Immunization history:: Adult Immunizations up to date. - Social history:: Smoking status: . Screenin:14 [facility] ED Fall Risk Assessment (Adult) History of falling in the last 3 months, db including since admission No falls in past 3 months (0 pts) Score/Fall Risk Level 0 - 2 = Low Risk Oriented to surroundings, Maintained a safe environment. Abuse screen: Denies threats or abuse. Denies injuries from another. Nutritional screening: No deficits noted. Tuberculosis screening: No symptoms or risk factors identified. Assessment: 08:51 Reassessment: Patient appears in no apparent distress at this time. Patient and/or db family updated on plan of care and expected duration. Pain level reassessed. Patient is alert, oriented x 3, equal unlabored respirations, skin warm/dry/pink. Reassessment: CHEST CONGESTION AND TIGHTNESS. ASKING FOR FLU/COVID SWAB. General: Appears in no apparent distress. comfortable, Behavior is calm, cooperative. Pain: Complains of pain in chest Pain does not radiate. Pain began gradually, 1 day ago. 10:13 Reassessment: Patient appears in no apparent distress at this time. Patient and/or db family updated on plan of care and expected duration. Pain level reassessed. Patient is alert, oriented x 3, equal unlabored respirations, skin warm/dry/pink. Neuro: Level of Consciousness is awake, alert, obeys commands, Oriented to person, place, time, situation. Cardiovascular: No deficits noted. Vital Signs: 08:54 BP 141 / 101; Pulse 82; Resp 16; Temp 98.3; Pulse Ox 100% on R/A; Pain 2/10; hb 09:45 BP 117 / 85; Pulse 72; Resp 16; Pulse Ox 100% on R/A; db 08:54 Pain Scale: Adult hb ED Course: 08:49 Patient arrived in ED. mr 08:50 Maddy Waters FNP [facility] 08:50 Fam Casper MD is Attending Physician. [facility] 08:51 Mackenzie Walker, RN is Primary Nurse. db 08:55 Triage completed. hb 08:55 Arm band placed on. hb 09:09 EKG done, by ED staff. aw1 09:11 SARS RAPID Sent. aw1 09:45 XRAY Chest (1 view) In Process Unspecified. EDMS 10:14 Patient has correct armband on for positive identification. Bed in low position. Call db light in reach. Side rails up X 1. Provided Education on: DISCHARGE. Pulse ox on. NIBP on. 10:14 No provider procedures requiring assistance completed. Patient maintains SpO2 db saturation greater than 95% on room air. O2 via FEELS BETTER AFTER NEB TREATMENT. 10:15 Patient did not have IV access during this emergency room visit. db Administered Medications: 09:18 Drug: DuoNeb Nebulize (2.5 mg - 0.5 mg) 3 ml Nebulizer once Route: Nebulizer; db 10:12 Follow up: Response: No adverse reaction db Medication: 10:13 VIS not applicable for this client. db Outcome: 09:58 Discharge ordered by . 7 10:14 Discharged to home ambulatory, with family, db 10:14 Condition: stable 10:14 Discharge instructions given to patient, family, Instructed on discharge instructions, follow up and referral plans. Prescriptions given X 3, 10:16 Patient left the ED. db Signatures: Dispatcher [employer] EDMS Elyssa Hassan, Reg Reg mr Sarah Crooks, RN RN Maddy Herbert, BOX ANNEALER BOX ANNEALER jh7 Mackenzie Walker, RN RN db Dorita Choe aw1
[2023-08-16 10:20] VITALS: TEMP 98.3; O2SAT 100
[2023-08-16 10:21] VITALS: BP 117/85
== END 2023-08-16 10:16 | disposition home or self-care (01) ==
LOC: ER 08:46
DX: J06.9 Acute upper respiratory infection, unspecified (principal); Z11.52 Encounter for screening for COVID-19; Z91.013 Allergy to seafood
CPT/HCPCS: 36415; 71045; 87811; 93005; 94640; 99285; J7613; J7644

== ENCOUNTER 2024-05-21 20:46 | Emergency (ER) | payer SELFPAY ==
[2024-05-21] MEDS ORDERED: ONDANSETRON 4 MG/2 ML VIAL ONE (22:13)
[2024-05-21] MEDS ORDERED: NA CHLORIDE 0.9% 1,000 ML ONE (22:13)
[2024-05-21 22:21] LABS: Absolute Basophils 0.1 K/uL (0-0.5); Absolute Eosinophils 0.3 K/uL (0-0.5); Absolute Monocytes 1.3 K/uL (0.1-1.3); Basophils % 0.9 % (0-1.3); Eosinophils % 2.4 % (0-4.4); Hematocrit 47.2 % (39.6-49.0); Hemoglobin 16.3 g/dL (13.6-17.9); Lymphocytes % 25.7 % (15.3-44.8); MCH 30.3 pg (27.0-35.0); MCHC 34.6 g/dL (32.0-36.0); MCV 87.5 fL (80-100); MPV 9.5 fL (7.6-11.3); Monocytes % 10.8 % (3.3-12.3); Neutrophils % 60.2 % (41.7-73.7); Nucleated Red Blood Cells % 0.2 % (0-0); Platelets 266 thou/uL (152-406); RBC Red Blood Cell Count 5.39 M/uL (4.33-5.43); Red Cell Distribution Width 13.1 % (12.1-15.2)
[2024-05-22 00:18] LABS: Specific Gravity > 1.030 (1.005-1.030); Sqamous Epithelial <5 /HPF (None Seen); Urine Bacteria None Seen /HPF (<20); Urine Bilirubin NEGATIVE (Negative); Urine Blood Negative (Negative); Urine Clarity Clear (Clear); Urine Color Light-Yellow (Yellow); Urine Culture Reflex Order NOT NEEDED; Urine Glucose NEGATIVE (Negative); Urine Ketones NEGATIVE (Negative); Urine Micro Reflex YN NO BILL MICROSCOPIC; Urine Mucus Slight /HPF (None Seen); Urine Nitrite NEGATIVE (Negative); Urine Protein TRACE (Negative); Urine RBC None Seen /HPF (None Seen); Urine Urobilinogen Normal (Normal); Urine WBC <5 /HPF (<5); Urine pH 5.5 (5.0-7.0)
[2024-05-22] MEDS ORDERED: NA CHLORIDE 0.9% 1,000 ML ONE (00:19)
[2024-05-22 00:21] LABS: Anion Gap 11.3 mEq/L (5.0-15.0); Potassium 3.3 mEq/L (3.5-5.1)
[2024-05-22 00:22] LABS: Albumin 4.4 g/dL (3.4-5.0); Bilirubin Direct 0.2 mg/dL (0-0.2); Bilirubin Indirect, Calculated 0.4 mg/dL (0.2-0.8); Bilirubin Total 0.6 mg/dL (0.2-1.0); Globulin 4.3 g/dL (2.3-3.5); Magnesium 1.9; Protein, Total 8.7 g/dL (6.4-8.2); Troponin High Sensitivity 4.2 (<58.9)
[2024-05-22] MEDS ORDERED: POTASSIUM 25 MEQ EFFERV TAB ONE (00:48)
--- NOTE | 2024-05-22 02:23 | EDPHYS ---
Physician Documentation [facility] Name: Dirk Pimentel Age: 33 yrs Sex: Male : 1990 Arrival Date: 05/21/2024 Time: 20:46 Bed 16 Private MD: ED Physician Luis Mercado HPI: 05/21 21:45 This 33 yrs old Male presents to ER via Ambulatory with complaints of Heat cp Exposure. 21:45 The patient presents with abdominal pain mid abdomen. Onset: The symptoms/episode cp began/occurred 3 day(s) ago. Associated signs and symptoms: Pertinent positives: nausea, Pertinent negatives: chest pain, active vomiting. The symptoms are described as crampy. Severity of pain: in the emergency department the pain is a 7 / 10. Historical: - Allergies: 21:08 NKDA; jb4 21:08 SEAFOOD; jb4 - PMHx: 21:08 Asthma; jb4 - Immunization history:: Adult Immunizations not up to date. - Infectious Disease History:: Denies. - Social history:: Smoking status: Patient denies any tobacco usage or history of. Patient uses alcohol, occasionally. ROS: 21:50 Constitutional: Positive for body aches, poor PO intake, Negative for chills, fever, cp 21:50 Cardiovascular: Negative for chest pain, edema, palpitations, cp 21:50 Respiratory: Negative for cough, shortness of breath, wheezing, 21:50 Abdomen/GI: Positive for nausea, Negative for diarrhea, active vomiting, 05/22 02:22 Constitutional: as per hpi ec2 Exam: 05/21 21:55 Constitutional: The patient appears in no acute distress, alert, awake, cp non-diaphoretic, non-toxic, well developed, well nourished, uncomfortable, 21:55 Head/Face: Normocephalic, atraumatic. cp 21:55 Eyes: Periorbital structures: appear normal, Conjunctiva: normal, no exudate, no injection, Sclera: no appreciated abnormality, Lids and lashes: appear normal, bilaterally, 23:25 ECG was reviewed by the Attending Physician. cp Vital Signs: 21:06 BP 143 / 105; Pulse 98; Resp 16; Temp 98.5(O); Pulse Ox 100% on R/A; Weight 58.97 kg jb4 (R); Height 5 ft. 6 in. (R); Pain 7/10; 21:30 BP 124 / 94; Pulse 89; Resp 18; Pulse Ox 99% on R/A; al5 22:00 BP 126 / 94; Pulse 94; Resp 18; Pulse Ox 100% on R/A; al5 22:30 BP 131 / 82; Pulse 84; Resp 18; Pulse Ox 100% on R/A; al5 23:00 BP 121 / 83; Pulse 83; Resp 18; Pulse Ox 100% on R/A; al5 23:30 BP 130 / 79; Pulse 81; Resp 18; Pulse Ox 100% on R/A; al5 05/22 00:00 BP 128 / 90; Pulse 89; Resp 18; Pulse Ox 100% on R/A; al5 00:30 BP 123 / 68; Pulse 81; Resp 18; Pulse Ox 100% on R/A; al5 01:03 BP 138 / 79; Pulse 85; Resp 18; Pulse Ox 100% on R/A; al5 01:30 BP 127 / 86; Pulse 90; Resp 16; Pulse Ox 100% on R/A; al5 02:00 BP 116 / 79; Pulse 80; Resp 16; Pulse Ox 100% on R/A; al5 05/21 21:06 Body Mass Index 20.98 (58.97 kg, 167.64 cm) [facility] 05/21 21:06 Pain Scale: Adult 4 MDM: 05/21 21:00 Patient medically screened. 05/22 01:57 Data reviewed: vital signs. ED course: Patient with history of heat exposure, signed ec2 out to me with pending CT abdomen pelvis. Patient with slight rhabdomyolysis, tolerating p.o. intake. Plans to follow-up CT scan of the abdomen pelvis and discharge patient home pending results. 02:21 ED course: CT on pelvis shows no acute intra-abdominal process. Will discharge home. ec2 Return precautions given. . 05/21 21:42 Order name: Basic Metabolic Panel; Complete Time: 00:52 cp 05/22 00:39 Interpretation: Normal except: NA 130; K 3.3; CL 95; BUN 25; GFR 89. cp 05/21 21:42 Order name: CBC with Diff; Complete Time: 23:57 cp 05/22 00:41 Interpretation: Normal except: WBC 11.70. cp 05/21 21:42 Order name: LFT's; Complete Time: 00:52 cp 05/22 00:40 Interpretation: Normal except: AST 51; ALK 132; TP 8.7; GLOB 4.3; A/G 1.0. cp 05/21 21:42 Order name: Magnesium; Complete Time: 00:52 cp 05/21 21:42 Order name: Troponin HS; Complete Time: 00:52 cp 05/22 00:53 Interpretation: Reviewed. cp 05/21 21:42 Order name: Lipase; Complete Time: 00:52 cp 05/21 22:12 Order name: Urinalysis W/Microscopic; Complete Time: 00:39 cp 05/22 00:40 Interpretation: Normal except: Urine SG > 1.030; UPROT TRACE. cp 05/21 23:49 Order name: Creatine Phosphokinase; Complete Time: 00:52 EDMS 08 00:53 Interpretation: Abnormal: CPK 1025. cp 05/21 23:57 Order name: CT Abd/Pelvis - IV Contrast Only cp 05/21 21:42 Order name: EKG; Complete Time: 21:43 cp 05/21 21:42 Order name: Cardiac monitoring; Complete Time: 23:34 cp 05/21 21:42 Order name: EKG - Nurse/Tech; Complete Time: 23:29 cp 05/21 21:42 Order name: IV Saline Lock; Complete Time: 22:11 cp 05/21 21:42 Order name: Labs collected and sent; Complete Time: 22:11 cp 05/21 21:42 Order name: O2 Per Protocol; Complete Time: 22:11 cp 05/21 21:42 Order name: O2 Sat Monitoring; Complete Time: 22:11 cp EC/08 23:25 Rate is 85 beats/min. Rhythm is regular. NH interval is normal. QRS interval is normal. cp QT interval is normal. T waves are Inverted in lead aVR. Interpreted by me. Reviewed by me. Administered Medications: 22:18 Drug: NS 0.9% IV 1000 ml IV at 1 bolus Per protocol; 1000 mL bolus Route: IV; Rate: 1 al5 bolus; Site: left antecubital; 23:34 Follow up: Response: No adverse reaction; IV Status: Completed infusion; IV Intake: al5 1000ml 22:18 Drug: Ondansetron IVP 4 mg IVP once; over 2 minutes Route: IVP; Site: left antecubital; al5 23:34 Follow up: Response: No adverse reaction al5 23:58 CANCELLED (Physician Discretion): [id number] mg IVP once cp 05/22 00:22 Drug: NS 0.9% IV 1000 ml IV at 1 bolus Per protocol; 1000 mL bolus Route: IV; Rate: 1 al5 bolus; Site: left antecubital; 02:36 Follow up: Response: No adverse reaction; IV Status: Completed infusion; IV Intake: al5 1000ml 00:53 Drug: Potassium PO Effervescent Tablet 50 mEq PO once; dissolve in 4 ounces of water or al5 juice Route: PO; 02:35 Follow up: Response: No adverse reaction al5 Disposition: 02:22 I agree with the assessment and plan of care. ec2 Disposition Summary: 05/22/24 02:22 Discharge Ordered Notes: Location: Home ec2 Problem: new ec2 Symptoms: have improved ec2 Condition: Stable ec2 Diagnosis - Abdominal pain, unspecified ec2 - Rhabdomyolysis ec2 - Heat cramp ec2 Followup: cp - With: Private Physician - When: 2 - 3 days - Reason: Recheck today's complaints Discharge Instructions: - Discharge Summary Sheet cp - Abdominal Pain, Adult cp Forms: - Medication Reconciliation Form ec2 - Antibiotic Education ec2 - Prescription Opioid Use ec2 - Patient Portal Instructions ec2 - Leadership Thank You Letter ec2 Prescriptions: - Zofran 4 mg Oral Tablet - take 1 tablet ORAL route every 12 hours As needed; 20 tablet; Refills: 0, cp Product Selection Permitted Signatures: Dispatcher [employer] EDMS Neville Bruce PA PA cp Syed Gill, RN RN jb4 Luis Mercado MD MD ec2 Mae Lord RN RN al5 Corrections: (The following items were deleted from the chart) 05/21 21:43 21:42 BASIC METABOLIC PANEL+C.LAB.BRZ ordered. EDMS EDMS 21:43 21:42 CBC+H.LAB.BRZ ordered. EDMS EDMS 21:43 21:42 HEPATIC FUNCTION+C.LAB.BRZ ordered. EDMS EDMS 21:43 21:42 MAGNESIUM+C.LAB.BRZ ordered. EDMS EDMS 21:43 21:42 Troponin High Sensitivity+C.LAB.BRZ ordered. EDMS EDMS :43 21:42 LIPASE+C.LAB.BRZ ordered. EDMS EDMS 22:13 22:13 Urinalysis W/Microscopic+U.LAB.BRZ ordered. EDMS EDMS 23:49 22:13 CREATINE PHOSPHOKINASE+C.LAB.BRZ ordered. EDMS EDMS 23:58 23:58 Abdomen Pelvis W Con+CT.RAD.BRZ ordered. EDMS EDMS 23:58 23:58 Ketorolac IVP 15 mg IVP once ordered. cp cp
--- NOTE | 2024-05-22 02:23 | ER ---
Nurse's Notes [facility] Name: Dirk Pimentel Age: 33 yrs Sex: Male : 1990 Arrival Date: 05/21/2024 Time: 20:46 Bed 16 Private MD: Diagnosis: Abdominal pain, unspecified;Rhabdomyolysis;Heat cramp Presentation: 05/21 21:06 Chief complaint: Patient states: I think I am having heat exposure and dehydration. I jb4 am having some abdominal cramping that is a 7/10. Coronavirus screen: At this time, the client does not indicate any symptoms associated with coronavirus-19. Ebola Screen: No symptoms or risks identified at this time. Initial Sepsis Screen: Does the patient meet any 2 criteria? No. Patient's initial sepsis screen is negative. Does the patient have a suspected source of infection? No. Patient's initial sepsis screen is negative. Risk Assessment: Do you want to hurt yourself or someone else? Patient reports no desire to harm self or others. Onset of symptoms was May 21, 2024. Transition of care: patient was not received from another setting of care. 21:06 Method Of Arrival: Ambulatory jb4 21:06 Acuity: [place] 3 jb4 Historical: - Allergies: 21:08 NKDA; jb4 21:08 SEAFOOD; jb4 - PMHx: 21:08 Asthma; jb4 - Immunization history:: Adult Immunizations not up to date. - Infectious Disease History:: Denies. - Social history:: Smoking status: Patient denies any tobacco usage or history of. Patient uses alcohol, occasionally. Screenin:23 [facility] ED Fall Risk Assessment (Adult) History of falling in the last 3 months, al5 including since admission No falls in past 3 months (0 pts) Confusion or Disorientation No (0 pts) Intoxicated or Sedated No (0 pts) Impaired Gait No (0 pts) Mobility Assist Device Used No (0 pt) Altered Elimination No (0 pt) Score/Fall Risk Level 0 - 2 = Low Risk Oriented to surroundings, Maintained a safe environment, Hourly rounding (assess needs \T\ fall precautionary measures) done. Abuse screen: Denies threats or abuse. Denies injuries from another. Nutritional screening: No deficits noted. Tuberculosis screening: No symptoms or risk factors identified. Assessment: 21:27 General: Appears in no apparent distress. uncomfortable, Behavior is calm, cooperative. al5 Pain: Complains of pain in abdomen Pain currently is 6 out of 10 on a pain scale. Neuro: Level of Consciousness is awake, alert, obeys commands, Oriented to person, place, time, situation. Cardiovascular: Patient's skin is warm and dry. Respiratory: Airway is patent Respiratory effort is even, unlabored, Respiratory pattern is regular, symmetrical. GI: Abdomen is flat, non-distended, Reports lower abdominal pain, upper abdominal pain, nausea, vomiting. : No signs and/or symptoms were reported regarding the genitourinary system. EENT: No signs and/or symptoms were reported regarding the EENT system. Derm: Skin is intact, Skin is pink, warm \T\ dry. normal. Derm:. Musculoskeletal: No signs and/or symptoms reported regarding the musculoskeletal system. 23:08 Reassessment: Patient appears in no apparent distress at this time. Patient and/or al5 family updated on plan of care and expected duration. Pain level reassessed. Patient is alert, oriented x 3, equal unlabored respirations, skin warm/dry/pink. Patient states symptoms have improved. 08 00:35 Reassessment: Patient appears in no apparent distress at this time. No changes from al5 previously documented assessment. Patient and/or family updated on plan of care and expected duration. Pain level reassessed. Patient is alert, oriented x 3, equal unlabored respirations, skin warm/dry/pink. Vital Signs: 05/21 21:06 BP 143 / 105; Pulse 98; Resp 16; Temp 98.5(O); Pulse Ox 100% on R/A; Weight 58.97 kg jb4 (R); Height 5 ft. 6 in. (R); Pain 7/10; 21:30 BP 124 / 94; Pulse 89; Resp 18; Pulse Ox 99% on R/A; al5 22:00 BP 126 / 94; Pulse 94; Resp 18; Pulse Ox 100% on R/A; al5 22:30 BP 131 / 82; Pulse 84; Resp 18; Pulse Ox 100% on R/A; al5 23:00 BP 121 / 83; Pulse 83; Resp 18; Pulse Ox 100% on R/A; al5 23:30 BP 130 / 79; Pulse 81; Resp 18; Pulse Ox 100% on R/A; al5 05/22 00:00 BP 128 / 90; Pulse 89; Resp 18; Pulse Ox 100% on R/A; al5 00:30 BP 123 / 68; Pulse 81; Resp 18; Pulse Ox 100% on R/A; al5 01:03 BP 138 / 79; Pulse 85; Resp 18; Pulse Ox 100% on R/A; al5 01:30 BP 127 / 86; Pulse 90; Resp 16; Pulse Ox 100% on R/A; al5 02:00 BP 116 / 79; Pulse 80; Resp 16; Pulse Ox 100% on R/A; al5 05/21 21:06 Body Mass Index 20.98 (58.97 kg, 167.64 cm) 4 05/21 21:06 Pain Scale: Adult [facility] ED Course: 05/21 20:52 Patient arrived in ED. gm2 20:53 Neville Bruce PA is PHCP. cp 20:53 Luis Mercado MD is Attending Physician. cp 21:08 Triage completed. jb4 21:08 Arm band placed on right wrist. jb4 21:23 Mae Lord, RN is Primary Nurse. al5 21:24 Patient has correct armband on for positive identification. Bed in low position. Call al5 light in reach. Side rails up X 1. Provided Education on: processes and procedure. 21:24 No provider procedures requiring assistance completed. al5 22:11 Basic Metabolic Panel Sent. al5 22:11 CBC with Diff Sent. al5 22:11 LFT's Sent. al5 22:11 Magnesium Sent. al5 22:11 Troponin HS Sent. al5 22:11 Lipase Sent. al5 22:18 Initial lab(s) drawn, by wa, sent to lab. Inserted saline lock: 20 gauge in left al5 antecubital area, using aseptic technique. Blood collected. 23:35 Lipase Sent. al5 23:38 Urinalysis W/Microscopic Sent. al5 05/22 01:03 CT Abd/Pelvis - IV Contrast Only In Process Unspecified. EDMS 02:37 IV discontinued, intact, bleeding controlled, No redness/swelling at site. Pressure al5 dressing applied. Administered Medications: 05/21 22:18 Drug: NS 0.9% IV 1000 ml IV at 1 bolus Per protocol; 1000 mL bolus Route: IV; Rate: 1 al5 bolus; Site: left antecubital; 23:34 Follow up: Response: No adverse reaction; IV Status: Completed infusion; IV Intake: al5 1000ml 22:18 Drug: Ondansetron IVP 4 mg IVP once; over 2 minutes Route: IVP; Site: left antecubital; al5 23:34 Follow up: Response: No adverse reaction al5 23:58 CANCELLED (Physician Discretion): [id number] mg IVP once cp 05/22 00:22 Drug: NS 0.9% IV 1000 ml IV at 1 bolus Per protocol; 1000 mL bolus Route: IV; Rate: 1 al5 bolus; Site: left antecubital; 02:36 Follow up: Response: No adverse reaction; IV Status: Completed infusion; IV Intake: al5 1000ml 00:53 Drug: Potassium PO Effervescent Tablet 50 mEq PO once; dissolve in 4 ounces of water or al5 juice Route: PO; 02:35 Follow up: Response: No adverse reaction al5 Medication: 05/21 21:24 VIS not applicable for this client. al5 Intake: 23:34 IV: 1000ml; Total: 1000ml. al5 05/22 02:36 IV: 1000ml; Total: 2000ml. al5 Outcome: 02:22 Discharge ordered by . ec2 02:39 Discharged to home ambulatory, with significant other, al5 02:39 Condition: good 02:39 Discharge instructions given to patient, Instructed on discharge instructions, follow up and referral plans. medication usage, Demonstrated understanding of instructions, follow-up care, medications, Prescriptions given X 1, 02:39 Patient left the ED. al5 Signatures: Dispatcher [employer] EDAZ Neville Bruce PA PA cp Bryson, James, RN RN jb4 Luis Mercado MD MD ec2 Cady Soriano Amanda, RN RN al5 Corrections: (The following items were deleted from the chart) 05/21 23:08 21:10 BP 121 / 74; Pulse 99bpm; Resp 18bpm; Pulse Ox 99% RA; al5 al5 23:08 21:30 BP 122 / 67; Pulse 102bpm; Resp 18bpm; Pulse Ox 99% RA; al5 al5 23:08 22:00 BP 122 / 77; Pulse 97bpm; Resp 18bpm; Pulse Ox 99% RA; al5 al5 23:08 22:30 BP 130 / 73; Pulse 96bpm; Resp 18bpm; Pulse Ox 99%; al5 al5 23:49 23:35 CREATINE PHOSPHOKINASE+C.LAB.BRZ drawn and sent. al5 EDMS
[2024-05-22 03:08] VITALS: TEMP 98.5
[2024-05-22 03:13] VITALS: O2SAT 100
[2024-05-22 03:26] VITALS: BP 116/79
--- NOTE | 2024-05-22 14:07 | EKG ---
Test Date: 2024-05-21 Test Time: 23:19:00 Analytical Data Miner: MEASUREMENT RESULTS: Intervals: Rate: 85 OR: 138 QRSD: 80 QT: 392 QTc: 466 [place]: P: 75 OR: 138 QRS: 93 T: 79 INTERPRETIVE STATEMENTS: Normal sinus rhythm Nonspecific ST abnormality Abnormal ECG Compared to ECG 08/16/2023 09:07:33 ST (T wave) deviation now present Electronically Signed On 05-22-24 14:05:18 CDT by Steve Mason
--- NOTE | 2024-05-22 15:23 | RAD REPORT ---
EXAM DESCRIPTION: CT - Abdomen Pelvis W Contrast - 05/22/2024 1:01 am CLINICAL HISTORY: ABD PAIN COMPARISON: None. TECHNIQUE: CT ABDOMEN PELVIS WITH IV CONTRAST on 05/21/2024 11:57 PM CDT This exam was performed according to our departmental dose-optimization program, which includes autom ated exposure control, adjustment of the mA and/or kV according to patient size and/or use of iterati ve reconstruction technique. FINDINGS: Lower lungs are clear. Abdomen: The liver is normal in appearance. There is no biliary dilatation. Gallbladder is decompress ed. Stomach is moderately distended with food material and fluid. The pancreas and spleen are normal in appearance. The adrenal glands and kidneys are unremarkable. Abdominal aorta is normal in course and caliber without aneurysm. There is no free air. There is no r etroperitoneal adenopathy. Pelvis: There is mild diverticulosis of the distal colon. Urinary bladder is unremarkable. There is n o free fluid. Appendix is normal. Skeleton: There are no acute osseous findings. No suspicious bony lesions. IMPRESSION: No definite acute process. Electronically signed by: Felipe Santa MD 05/22/2024 02:14 AM CDT RP Due to temporary technical issues with the PACS/Fluency reporting system, reports are being signed by the in house radiologists without review as a courtesy to insure prompt reporting. The interpreting radiologist is fully responsible for the content of the report.
== END 2024-05-22 02:39 | disposition home or self-care (01) ==
LOC: ER 20:46
DX: M62.82 Rhabdomyolysis (principal); T67.2XXA Heat cramp, initial encounter
CPT/HCPCS: 36415; 74177; 80048; 80076; 81001; 82550; 83690; 83735; 84484; 85025; 93005; 96361; 96374; 99284; J2405; J7030; Q9967

== ENCOUNTER 2024-10-05 10:02 | Observation (INO) | payer SELFPAY ==
[2024-10-05] MEDS ORDERED: HYDROCODONE/CHLORPHEN 5 ML/OSYR ONE (10:52)
[2024-10-05] MEDS ORDERED: ALBUTEROL 2.5 MG/3 ML NEB SOL ONE (10:52)
[2024-10-05] MEDS ORDERED: IPRATROPIUM BROM 0.5MG/2.5ML ONE (10:52)
[2024-10-05] MEDS ORDERED: KETOROLAC 30 MG/ML INJ ONE (10:52)
[2024-10-05] MEDS ORDERED: NA CHLORIDE 0.9% 1,000 ML ONE (10:52)
[2024-10-05 10:53] LABS: Absolute Basophils 0.1 K/uL (0-0.5); Absolute Lymphocytes (CBC) 1.6 K/uL (0.7-4.9); Absolute Monocytes 1.3 K/uL (0.1-1.3); Absolute Neutrophil 10.5 K/uL (1.8-8.0); Basophils % 0.5 % (0-1.3); Eosinophils % 13.1 % (0-4.4); Hematocrit 47.6 % (39.6-49.0); Hemoglobin 16.2 g/dL (13.6-17.9); Lymphocytes % 10.4 % (15.3-44.8); MCH 30.4 pg (27.0-35.0); MCHC 34.1 g/dL (32.0-36.0); Monocytes % 8.5 % (3.3-12.3); Neutrophils % 67.5 % (41.7-73.7); Platelets 300 thou/uL (152-406); RBC Red Blood Cell Count 5.34 M/uL (4.33-5.43); Red Cell Distribution Width 12.9 % (12.1-15.2)
[2024-10-05 11:12] LABS: Anion Gap 5.8 mEq/L (5.0-15.0); Potassium 3.8 mEq/L (3.5-5.1); Troponin High Sensitivity 3.3 pg/mL (<58.9)
[2024-10-05 11:17] LABS: SARS-CoV-2 Antigen CONTROL BLUE LINE VIS/BG OK; SARS-CoV-2 Antigen Rapid Res Negative (Negative)
--- NOTE | 2024-10-05 11:44 | RAD REPORT ---
EXAMINATION: ONE VIEW CHEST XR CLINICAL INDICATION: Male, 33 years old.,Chest pain;SOB TECHNIQUE: Frontal chest projection is submitted. Examination is limited by patient positioning and t echnique. COMPARISON: 08/16/2023 FINDINGS: The lungs are diffusely emphysematous but grossly clear. No pneumothorax or sizable effusion. The h eart is normal in size. Mediastinal contours are unremarkable. IMPRESSION: No acute intrathoracic abnormalities.
--- NOTE | 2024-10-05 12:13 | RAD REPORT ---
EXAM: CT CHEST, ABDOMEN AND PELVIS WITH CONTRAST CLINICAL INDICATION: Male, 33 years old. Abdominal pain;Chest pain;Dyspnea TECHNIQUE: CT chest, abdomen, and pelvis was performed, following the administration of contrast, as per department protocol. Axial, sagittal and coronal reconstructions were obtained. One or more of the following dose reduction techniques were used: Automated exposure control, adjustment of the mA a nd/or kV according to patient size, and/or iterative reconstruction. Unless otherwise specified, incidental findings do not require dedicated imaging follow-up. COMPARISON: Chest radiograph of the same day. 05/22/2024 CT abdomen and pelvis FINDINGS: LUNGS AND AIRWAYS: No evidence of airspace or interstitial process. No nodules. PLEURA: No pleural effusion. No pneumothorax. MEDIASTINUM AND LYMPH NODES: Mild free pneumomediastinum dissecting along the AP window, roots of the great vessels, and extending to the epicardial space anteriorly, and the paraesophageal space. No significant inflammatory changes or findings to suggest an esophageal leak. No mediastinal mass or fl uid collection. Normal size mediastinal, hilar, and axillary lymph nodes. THORACIC AORTA: Normal caliber and configuration. PULMONARY ARTERIES: Normal caliber. OSSEOUS STRUCTURES AND CHEST WALL: Intact. LIVER: Normal in size and contour. No focal lesion or biliary dilitation. BILIARY SYSTEM: No suspicious abnormalities. PANCREAS: No mass, ductal dilation, or spenser-pancreatic fluid. SPLEEN: Normal size. No focal lesion. ADRENALS: Normal; no mass. KIDNEYS AND URETERS: Normal size and contour. No hydronephrosis. URINARY BLADDER: Normal contour. GASTROINTESTINAL TRACT: No bowel obstruction, free air, significant free fluid or abscess. APPENDIX: No inflammatory changes in region of appendix. LYMPH NODES: No lymphadenopathy. ABDOMINAL AORTA AND OTHER VESSELS: Normal caliber aorta and IVC. MUSCULOSKELETAL: No acute or suspicious osseous abnormality. IMPRESSION: Mild pneumomediastinum of uncertain etiology. No acute or significant abnormalities seen in the abdomen or pelvis. THIS REPORT CONTAINS FINDINGS THAT MAY BE CRITICAL TO PATIENT CARE. The findings were verbally commun icated via telephone to Neville Benítez M.D. on 10/05/2024 12:09 PM.
--- NOTE | 2024-10-05 12:25 | EDPHYS ---
Physician Documentation [facility] Name: Dirk Pimentel Age: 33 yrs Sex: Male : 1990 Arrival Date: 10/05/2024 Time: 10:02 Bed 18 Private MD: ED Physician Neville Benítez HPI: 10/05 10:30 This 33 yrs old Male presents to ER via Unassigned with complaints of sb4 Breathing Difficulty, Cough. 10:30 Patient reports chest pain, shortness of breath, cough, abdominal pain that began 2 sb4 days ago. and stepson are sick with similar symptoms. Has taken Robitussin without significant relief. States that is hard to take a full breath. Reports wheezing. No history of smoking. Had a few episodes of emesis. Historical: - Allergies: 10:20 NKDA; rs5 10:20 SEAFOOD; rs5 - PMHx: 10:20 Asthma; rs5 - PSHx: 10:20 None; rs5 - Immunization history:: Adult Immunizations up to date. - Infectious Disease History:: Denies. - Social history:: Smoking status: Patient denies any tobacco usage or history of. ROS: 10:30 Skin: Negative for injury, rash, and discoloration, sb4 10:30 Constitutional: Positive for fatigue, malaise, 10:30 ENT: 10:30 Cardiovascular: Positive for chest pain, 10:30 Respiratory: Positive for cough, dyspnea on exertion, orthopnea, shortness of breath, wheezing, 10:30 Abdomen/GI: Positive for abdominal pain, nausea and vomiting, 10:30 All other systems are negative, Exam: 10:30 Head/Face: Normocephalic, atraumatic. Eyes: Extra-ocular motions intact. Periorbital sb4 areas with no swelling, redness, or edema. ENT: Mucous membranes moist. Cardiovascular: Regular rate and rhythm with a normal S1 and S2. Respiratory: No increased work of breathing, no retractions or nasal flaring. Abdomen/GI: Soft, non-tender, no distension. Skin: Warm, dry with normal turgor. Normal color with no rashes, no lesions, and no evidence of cellulitis. 10:30 Constitutional: The patient appears alert, awake, uncomfortable, Vital Signs: 10:17 BP 127 / 71; Pulse 107; Resp 19; Temp 98.1(O); Pulse Ox 98% on R/A; rs5 11:01 BP 117 / 69; Pulse 71; Resp 17; Pulse Ox 99% on R/A; rs5 12:17 BP 122 / 74; Pulse 70; Resp 17; Pulse Ox 99% on R/A; rs5 13:00 BP 128 / 81; Pulse 79; Resp 13; Pulse Ox 96% ; me1 14:00 BP 124 / 87; Pulse 86; Resp 15; Pulse Ox 97% ; me1 MDM: 10:25 Medical Screening Exam initiated sb4 12:20 Data reviewed: vital signs, nurses notes, lab test result(s), EKG, radiologic studies, sb4 I have discussed the patient's presentation/case with the attending Emergency Department Physician;. 12:23 Counseling: I had a detailed discussion with the patient and/or guardian regarding the sb4 historical points, exam findings, and any diagnostic results supporting the discharge/admit diagnosis, lab results, radiology results, the need to transfer to another facility. 13:50 Management of patient was discussed with the following: Lay Brother: CT surgery at [address] in the [facility]-did not think transfer was necessary, states there is no required intervention as there is no effusion and it is likely a microperforation and not non esophageal related. Patient can be monitored here. 10/05 10:26 Order name: Basic Metabolic Panel; Complete Time: 11:12 sb4 10/05 10:26 Order name: CBC with Diff; Complete Time: 10:55 sb4 10/05 10:26 Order name: Troponin HS; Complete Time: 11:12 sb4 10/05 10:26 Order name: Lipase; Complete Time: 11:12 sb4 10/05 10:26 Order name: SARS RAPID; Complete Time: 11:18 sb4 10/05 10:26 Order name: Flu; Complete Time: 11:18 sb4 10/05 10:26 Order name: Strep sb4 10/05 11:21 Order name: Throat Culture EDMS 10/05 11:31 Order name: [place] Screen Profile; Complete Time: 13:20 sb4 10/05 12:21 Order name: UDS; Complete Time: 13:08 sb4 10/05 14:24 Order name: CBC with Automated Diff EDMS 10/05 14:24 Order name: CBC with Automated Diff EDMS 10/05 14:24 Order name: Comprehensive Metabolic Panel EDMS 10/05 14:24 Order name: Comprehensive Metabolic Panel EDMS 10/05 10:26 Order name: XRAY Chest (1 view); Complete Time: 11:45 sb4 10/05 11:19 Order name: CT Chest, Abdomen, Pelvis - W/Contrast; Complete Time: 12:14 sb4 10/05 10:26 Order name: Cardiac monitoring; Complete Time: 10:42 sb4 10/05 10:26 Order name: EKG - Nurse/Tech; Complete Time: 10:42 sb4 10/05 10:26 Order name: IV Saline Lock; Complete Time: 10:42 sb4 10/05 10:26 Order name: Labs collected and sent; Complete Time: 10:42 sb4 10/05 10:26 Order name: O2 Per Protocol; Complete Time: 10:42 sb4 10/05 10:26 Order name: O2 Sat Monitoring; Complete Time: 10:42 sb4 EC:13 Rate is 101 beats/min. Rhythm is regular, Sinus tachycardia. Right axis deviation sb4 noted. MO interval is normal at 138 msec. QRS interval is normal at 76 msec. QT interval is normal at 338 msec. No Q waves. T waves are Normal. No ST changes noted. Clinical impression: No evidence of ischemia. Interpreted by me. Reviewed by me. Administered Medications: 11:10 Drug: DuoNeb Nebulize (3:1) (2.5 mg - 0.5 mg) 3 ml Nebulizer once Route: Nebulizer; rs5 12:57 Follow up: Response: No adverse reaction; Wheezing diminished me1 11:10 Drug: Tussionex Pennkinetic ER PO Suspension 5 ml PO once Route: PO; rs5 12:57 Follow up: Response: No adverse reaction me1 11:10 Drug: Ketorolac IVP 15 mg IVP once Route: IVP; Site: left antecubital; rs5 12:53 Follow up: Response: No adverse reaction; Pain is decreased me1 11:11 Drug: NS 0.9% IV 1000 ml IV at 1 bolus Per protocol; to be given as a bolus over 60 rs5 minutes Route: IV; Rate: 1 bolus; Site: left antecubital; 12:57 Follow up: Response: No adverse reaction; IV Status: Completed infusion; IV Intake: me1 1000ml Disposition Summary: 10/05/24 13:50 Hospitalization Ordered Notes: Hospitalization Status: Observation sb4 Provider: Kenna Bermeo Location: Telemetry/MedSurg (observation) sb4 Condition: Fair(10/05/24 13:50) sb4 Problem: new(10/05/24 13:50) sb4 Symptoms: have improved(10/05/24 13:50) sb4 Bed/Room Type: Standard sb4 Room Assignment: 410(10/05/24 14:42) bc6 Diagnosis - Pneumomediastinum, mild sb4 Forms: - Medication Reconciliation Form sb4 - SBAR form sb4 - Leadership Thank You Letter sb4 Addendum: 10/08/2024 12:42 Co-signature as Attending Physician, Neville Benítez MD I agree with the assessment and c stewart plan of care. Signatures: Dispatcher [employer] Neville Epps MD MD cha Brown, Sophia, PATiffanyC PA-C sb4 Efrain Reinoso, RN RN rs5 Cass [place] bc6 Anahi Brian RN me1 Corrections: (The following items were deleted from the chart) 10/05 10:26 10:26 BASIC METABOLIC PANEL+C.LAB.BRZ ordered. EDMS EDMS 10:26 10:26 CBC+H.LAB.BRZ ordered. EDMS EDMS 10:26 10:26 Troponin High Sensitivity+C.LAB.BRZ ordered. EDMS EDMS 10:26 10:26 LIPASE+C.LAB.BRZ ordered. EDMS EDMS 10:26 10:26 SARS-COV-2 Antigen Rapid+I.LAB.BRZ ordered. EDMS EDMS 10:26 10:26 Influenza Screen (A \T\ B)+BA.LAB.BRZ ordered. EDMS EDMS 10:26 10:26 Group A Streptococcus Rapid Sc+BA.LAB.BRZ ordered. EDMS EDMS 10:26 10:26 Chest Single View+RAD.RAD.BRZ ordered. EDMS EDMS 12:22 12:22 URINE DRUG SCREEN+UC.LAB.BRZ ordered. EDMS EDMS 13:49 12:24 hospitalist sb4 sb4 13:49 12:24 [facility] sb4 sb4 13:49 12:24 Higher level of care sb4 sb4 13:49 12:24 Fair sb4 sb4 13:49 12:24 new sb4 sb4 13:49 12:24 are unchanged sb4 sb4 13:49 12:24 Pneumomediastinum sb4 sb4 14:42 13:50 sb4 bc6
--- NOTE | 2024-10-05 12:25 | ER ---
Nurse's Notes [facility] Name: Dirk Pimentel Age: 33 yrs Sex: Male : 1990 Arrival Date: 10/05/2024 Time: 10:02 Bed 18 Private MD: Diagnosis: Pneumomediastinum, mild Presentation: 10/05 10:17 Chief complaint: Patient states: Cough and difficulty breathing x3 days. Coronavirus rs5 screen: At this time, the client does not indicate any symptoms associated with coronavirus-19. Ebola Screen: No symptoms or risks identified at this time. 10:17 Method Of Arrival: Ambulatory rs5 10:17 Initial Sepsis Screen: Does the patient meet any 2 criteria? HR > 90 bpm. Yes Does the rs5 patient have a suspected source of infection? No. Patient's initial sepsis screen is negative. Risk Assessment: Do you want to hurt yourself or someone else? Patient reports no desire to harm self or others. Onset of symptoms was October 02, 2024. 10:17 Acuity: [place] 3 rs5 Triage Assessment: 10:20 General: Appears in no apparent distress. uncomfortable, Behavior is calm, cooperative. rs5 Pain: Denies pain. Respiratory: Reports shortness of breath cough that is Onset: The symptoms/episode began/occurred the patient has mild shortness of breath. Historical: - Allergies: 10:20 NKDA; rs5 10:20 SEAFOOD; rs5 - PMHx: 10:20 Asthma; rs5 - PSHx: 10:20 None; rs5 - Immunization history:: Adult Immunizations up to date. - Infectious Disease History:: Denies. - Social history:: Smoking status: Patient denies any tobacco usage or history of. Screenin:17 [facility] ED Fall Risk Assessment (Adult) History of falling in the last 3 months, rs5 including since admission No falls in past 3 months (0 pts) Confusion or Disorientation No (0 pts) Intoxicated or Sedated No (0 pts) Impaired Gait No (0 pts) Mobility Assist Device Used No (0 pt) Altered Elimination No (0 pt) Score/Fall Risk Level 0 - 2 = Low Risk Oriented to surroundings, Maintained a safe environment. Abuse screen: Denies threats or abuse. Nutritional screening: No deficits noted. Tuberculosis screening: No symptoms or risk factors identified. Assessment: 10:17 General: Appears in no apparent distress. uncomfortable, Behavior is calm, cooperative. rs5 Pain: Denies pain. Neuro: Level of Consciousness is awake, alert, obeys commands, Oriented to person, place, time, situation. Cardiovascular: Patient's skin is warm and dry. Rhythm is regular. Respiratory: Reports shortness of breath cough that is Airway is patent Respiratory effort is even, unlabored, Respiratory pattern is regular, symmetrical, 10:17 GI: Abdomen is round non-distended, Abd is soft and non tender X 4 quads. : No signs rs5 and/or symptoms were reported regarding the genitourinary system. EENT: No signs and/or symptoms were reported regarding the EENT system. Derm: Skin is intact, Skin is pink, warm \T\ dry. Musculoskeletal: Range of motion: intact in all extremities. 11:33 Reassessment: Patient and/or family updated on plan of care and expected duration. Pain rs5 level reassessed. Patient is alert, oriented x 3, equal unlabored respirations, skin warm/dry/pink. 12:19 Reassessment: Patient and/or family updated on plan of care and expected duration. Pain rs5 level reassessed. Patient is alert, oriented x 3, equal unlabored respirations, skin warm/dry/pink. 13:45 Reassessment: Patient and/or family updated on plan of care and expected duration. Pain rs5 level reassessed. Patient is alert, oriented x 3, equal unlabored respirations, skin warm/dry/pink. Vital Signs: 10:17 BP 127 / 71; Pulse 107; Resp 19; Temp 98.1(O); Pulse Ox 98% on R/A; rs5 11:01 BP 117 / 69; Pulse 71; Resp 17; Pulse Ox 99% on R/A; rs5 12:17 BP 122 / 74; Pulse 70; Resp 17; Pulse Ox 99% on R/A; rs5 13:00 BP 128 / 81; Pulse 79; Resp 13; Pulse Ox 96% ; me1 14:00 BP 124 / 87; Pulse 86; Resp 15; Pulse Ox 97% ; me1 ED Course: 10:10 Patient arrived in ED. mr 10:10 Juani Villanueva PA-C is PHCP. sb4 10:10 Neville Benítez MD is Attending Physician. sb4 10:17 No provider procedures requiring assistance completed. rs5 10:17 Patient has correct armband on for positive identification. Placed in gown. Bed in low rs5 position. Call light in reach. Side rails up X2. 10:17 Arm band placed on Patient placed in an exam room. me1 10:30 Efrain Reinoso, RN is Primary Nurse. rs5 10:53 Initial lab(s) drawn, by me, sent to lab. Inserted saline lock: 20 gauge in left bc6 antecubital area, using aseptic technique. Blood collected. Flushed with 10 mL NS. 10:53 COVID swab sent to lab. Flu and/or RSV swab sent to lab. Strep swab sent to lab. bc6 11:10 XRAY Chest (1 view) In Process Unspecified. EDMS 11:40 CT Chest, Abdomen, Pelvis - W/Contrast In Process Unspecified. EDMS 11:49 Triage completed. rs5 12:05 Client placed on continuous cardiac and pulse oximetry monitoring. NIBP monitoring me1 applied. security monitor on. Pulse ox on. NIBP on. 12:58 Throat Culture Sent. me1 12:58 [place] Screen Profile Sent. me1 12:58 UDS Sent. me1 13:49 Kenna Bermeo MD is Hospitalizing Provider. sb4 14:51 Provided Education on: POC. Verbalized understanding.. me1 14:55 Patient admitted, IV remains in place. me1 Administered Medications: 11:10 Drug: DuoNeb Nebulize (3:1) (2.5 mg - 0.5 mg) 3 ml Nebulizer once Route: Nebulizer; rs5 12:57 Follow up: Response: No adverse reaction; Wheezing diminished me1 11:10 Drug: Tussionex Pennkinetic ER PO Suspension 5 ml PO once Route: PO; rs5 12:57 Follow up: Response: No adverse reaction me1 11:10 Drug: Ketorolac IVP 15 mg IVP once Route: IVP; Site: left antecubital; rs5 12:53 Follow up: Response: No adverse reaction; Pain is decreased me1 11:11 Drug: NS 0.9% IV 1000 ml IV at 1 bolus Per protocol; to be given as a bolus over 60 rs5 minutes Route: IV; Rate: 1 bolus; Site: left antecubital; 12:57 Follow up: Response: No adverse reaction; IV Status: Completed infusion; IV Intake: me1 1000ml Medication: 12:18 VIS not applicable for this client. rs5 Intake: 12:57 IV: 1000ml; Total: 1000ml. me1 Outcome: 12:24 ER care complete, transfer ordered by . sb4 13:50 Decision to Hospitalize by Provider. sb4 14:55 Admitted to Tele accompanied by tech, via stretcher, room 410, with chart, Report me1 called to faxed, receipt confirmed by Kecia 14:55 Condition: stable 14:55 Instructed on the need for admit, 16:18 Patient left the ED. rs5 Signatures: Dispatcher [employer] EDMS Elyssa Hassan, Reg Reg mr Juani Villanueva, PA-C PA-C sb4 Efrain Reinoso, RN RN rs5 Cass [place] bc6 Anahi Brian, RN RN me1 Corrections: (The following items were deleted from the chart) 18:48 18:47 BP 118 / 77; Pulse 74bpm; Resp 16bpm; Pulse Ox 98% RA; rs5 rs5
[2024-10-05 13:08] LABS: Barbiturates NEGATIVE (NEGATIVE); Benzodiazepines NEGATIVE (NEGATIVE); Cocaine NEGATIVE (NEGATIVE); METHAMPHETAM NEGATIVE (NEGATIVE); Methadone NEGATIVE (NEGATIVE); Opiates NEGATIVE (NEGATIVE); Phencyclidine NEGATIVE (NEGATIVE); THC Cannibis NEGATIVE (NEGATIVE)
[2024-10-05 13:20] LABS: Monoscreen NEG (NEG)
[2024-10-05] MEDS ORDERED: MORPHINE 2 MG/ML SYR IV PRN (14:19)
[2024-10-05] MEDS ORDERED: ONDANSETRON 4 MG/2 ML VIAL IV PRN (14:19)
[2024-10-05] MEDS: IPRATROPIUM BROM 0.5MG/2.5ML NEB SCH (15:00)
[2024-10-05] MEDS: ALBUTEROL 2.5 MG/3 ML NEB SOL NEB SCH (15:00)
[2024-10-05 16:38] VITALS: BMI 20.9
[2024-10-05 19:03] LABS: Albumin 4.1 g/dL (3.4-5.0); Albumin/Globulin Ratio 1.1 (1.1-1.8); Bilirubin Direct 0.2 mg/dL (0-0.2); Bilirubin Indirect, Calculated 0.5 mg/dL (0.2-0.8); Bilirubin Total 0.7 mg/dL (0.2-1.0); Globulin 3.7 g/dL (2.3-3.5); Protein, Total 7.8 g/dL (6.4-8.2)
[2024-10-05] MEDS ORDERED: ALBUTEROL 2.5 MG/3 ML NEB SOL NEB PRN (21:00)
[2024-10-05] MEDS ORDERED: IPRATROPIUM BROM 0.5MG/2.5ML NEB PRN (21:00)
[2024-10-06] MEDS: BENZONATATE 100 MG CAP PO PRN (00:50)
[2024-10-06] MEDS: ALBUTEROL 2.5 MG/3 ML NEB SOL NEB PRN (02:05)
[2024-10-06 06:13] LABS: Absolute Basophils 0.1 K/uL (0-0.5); Absolute Eosinophils 2.2 K/uL (0-0.5); Absolute Lymphocytes (CBC) 2.5 K/uL (0.7-4.9); Absolute Neutrophil 5.9 K/uL (1.8-8.0); Basophils % 0.9 % (0-1.3); Eosinophils % 18.7 % (0-4.4); Hemoglobin 13.8 g/dL (13.6-17.9); Lymphocytes % 21.1 % (15.3-44.8); MCH 30.6 pg (27.0-35.0); MCHC 34.4 g/dL (32.0-36.0); MCV 88.9 fL (80-100); MPV 9.4 fL (7.6-11.3); Monocytes % 8.8 % (3.3-12.3); Neutrophils % 50.5 % (41.7-73.7); Nucleated Red Blood Cells % 0.2 % (0-0); Platelets 259 thou/uL (152-406); Red Cell Distribution Width 12.7 % (12.1-15.2)
[2024-10-06 06:45] LABS: Albumin 3.3 g/dL (3.4-5.0); Anion Gap 6.9 mEq/L (5.0-15.0); Bilirubin Total 0.4 mg/dL (0.2-1.0); Globulin 3.2 g/dL (2.3-3.5); Potassium 3.9 mEq/L (3.5-5.1); Protein, Total 6.5 g/dL (6.4-8.2)
--- NOTE | 2024-10-06 08:09 | RAD REPORT ---
EXAMINATION: ONE VIEW CHEST XR CLINICAL INDICATION: pneumonia TECHNIQUE: Frontal chest projection is submitted. Examination is limited by patient positioning and t echnique. COMPARISON: 10/05/2024 FINDINGS: The lungs are well inflated and clear. The heart is normal in size. No displaced fractures identified . IMPRESSION: No acute intrathoracic abnormalities.
[2024-10-06 08:59] VITALS: BP 128/75; TEMP 97.9
[2024-10-06 09:53] LABS: Blood Morphology Comment NOT SEEN (NOT SEEN); Differential Total Cells Count 100; Eosinophils 16 % (0-3); Lymphocytes 30 % (15-42); Monocytes 6 % (0-10); Platelet Estimate ADEQ; Segmented Neutrophils 47 % (40-80)
[2024-10-06 10:06] VITALS: O2SAT 96
--- NOTE | 2024-10-06 10:43 | P.HP ---
Certification for Inpatient Patient admitted to: Observation With expected LOS: <2 Midnights Patient will require the following post-hospital care: None Practitioner: I am a practitioner with admitting privileges, knowledge of patient current condition, hospital course, and medical plan of care. Services: Services provided to patient in accordance with Admission requirements found in Title 42 Section 412.3 of the Code of Federal Regulations Patient History Date of Service: 10/05/24 Reason for admission: Intractable nausea and vomiting History of Present Illness: Patient is a 33-year-old gentleman came to the hospital with nausea and vomiting. Patient had a CT scan which showed some air in the mediastinum. This was felt to be very minimal. Patient was admitted to the hospital for further evaluation. In the ER patient was given oxygen and pain medication and symptoms are improving. Patient clinically doing much better. At this time we will observe patient overnight. Anticipate discharge in a.m. Will need outpatient imaging studies with pulmonary or primary care provider. This will need to be followed. This will take some time to resolve but as long as patient does not have any worsening today and anticipate he will be able to go home. I will repeat his chest x-ray in a.m. Allergies No Known Drug Fabián Allergy (Uncoded 03/10/17 01:34) Unknown SEAFOOD Allergy (Uncoded 03/10/17 01:34) Unknown Home Medications: NK [No Home Meds] 10/06/24 - Past Medical/Surgical History Diabetic: No Past Medical History: Patient denies medical history -: Prior hospitalization for nausea and vomiting/Marielena-Palmer tear Past Surgical History: Patient denies surgical history - Family History Father Family History: Reviewed- Non-Contributory - Social History Smoking Status: Never smoker Alcohol use: No CD- Drugs: No Caffeine use: No Place of Residence: Home Review of Systems 10-point ROS is otherwise unremarkable Physical Examination - Vital Signs Temperature: 97.9 F Blood Pressure: 128/75 Pulse: 78 Respirations: 16 Pulse Ox (%): 96 - Physical Exam General: Alert, In no apparent distress, Oriented x3 HEENT: Atraumatic, PERRLA, Mucous membr. moist/pink, EOMI, Sclerae nonicteric Neck: Supple, 2+ carotid pulse no bruit, No LAD, Without JVD or thyroid abnormality Respiratory: Clear to auscultation bilaterally, Normal air movement Cardiovascular: Regular rate/rhythm, Normal S1 S2, No murmurs Gastrointestinal: Normal bowel sounds, Soft and benign, Non-distended, No tenderness Musculoskeletal: No clubbing, No swelling, No tenderness Integumentary: No rashes Neurological: Normal gait, Normal speech, Normal strength at 5/5 x4 extr, Normal tone, Sensation intact, Cranial nerves 3-12 intact, Normal affect Lymphatics: No axilla or inguinal lymphadenopathy - Studies Laboratory Data (last 24 hrs) 10/05/24 10/05/24 10/05/24 10:40 10:40 10:40 WBC 15.50 H Hgb 16.2 Hct 47.6 Plt Count 300 Sodium 139 Potassium 3.8 BUN 10 Creatinine 0.99 Glucose 92 Total Bilirubin 0.7 AST 19 ALT 20 Alkaline Phosphatase 114 Lipase 20 Microbiology Data (last 24 hrs): 10/05/24 10:42 Throat Group A Streptococcus Rapid Screen - Final 10/05/24 10:42 Nasopharnyx Influenza Type A Antigen Screen - Final 10/05/24 10:42 Nasopharnyx Influenza Type B Antigen Screen - Final Assessment & Plan - Problems (Diagnosis) (1) Nausea and vomiting Current Visit: Yes Status: Acute (2) Acquired pneumomediastinum Current Visit: Yes Status: Acute - Plan Plan: 1. Continue with IV fluids antiemetics; Pain medication as needed 2. Repeat chest x-ray in a.m. 3. O2 as tolerated 4. Outpatient follow-up for imaging studies to reassess; anticipate discharge in a.m. Discharge Plan: Home Plan to discharge in: 24 Hours - Advance Directives Does patient have a Living Will: No Does patient have a Durable POA for Healthcare: No - Code Status/Comfort Care Code Status Assessed: Yes Code Status: Full Code Critical Care: No Time Spent Managing PTS Care (In Minutes): 45
--- NOTE | 2024-10-06 14:41 | EKG ---
Test Date: 2024-10-05 Test Time: 10:46:06 Supervisory Training Specialist: ANA MEASUREMENT RESULTS: Intervals: Rate: 101 DC: 138 QRSD: 76 QT: 338 QTc: 438 [place]: P: 82 DC: 138 QRS: 95 T: 70 INTERPRETIVE STATEMENTS: Sinus tachycardia Rightward axis Borderline ECG Compared to ECG 05/21/2024 23:19:00 Right-axis deviation now present Sinus rhythm no longer present ST (T wave) deviation no longer present Electronically Signed On 10-06-24 14:39:14 HOG COUNTER by Steve Mason
== END 2024-10-06 12:15 | disposition home or self-care (01) ==
LOC: ER 10:02 → ERHOLD 14:19 → 4TH 14:59
PROVIDERS: ADMIT Hospitalist; ATTEND Hospitalist
DX: J98.2 Interstitial emphysema (principal); J45.909 Unspecified asthma, uncomplicated; Z91.013 Allergy to seafood; Z11.52 Encounter for screening for COVID-19; R11.2 Nausea with vomiting, unspecified
CPT/HCPCS: 36415; 71045; 71260; 74177; 80048; 80053; 80076; 80307; 83690; 84484; 85025; 86308; 87070; 87081; 87804; 87811; 93005; 94640; 96361; 96374; 99285; G0378; J7030; J7613; J7644; Q9967